=== PATIENT | male | born 1980 | race Caucasian/White ===

== ENCOUNTER 2017-07-20 10:31 | Emergency (ER) | payer OTHER ==
--- NOTE | ~2017-07-20 | CR142 ---
[facility]. [facility] A Service of [facility] RADIOLOGY TEXT RESULTS PATIENT: FRANCISCO J CEJA LOCATION: SED : 80 UNIT #: [id number] AGE: [address]: Dean Banuelos SEX: M ORDER DR: [id number] [address] [id number] MR#: [id number] Acc #: [id number] NAME: FRANCISCO J CEJA : 1980 SEX: M STUDY DATE/TIME: 07/20/2017 11:47 UNIT: SED ROOM: STUDY DESCRIPTION: CR Hand Min 3 Views Rt Attending Physician: Dean Banuelos Ordering Physician: Melany Antonio M.D. Primary Care Physician: Roberto Crowell M.D. MEDICAL IMAGING REPORT This report is preliminary unless electronic signature is present. EXAM Right hand. INDICATIONS Right hand pain since Tuesday after pushing down on a knife. FINDINGS Three views of the right hand were obtained. The healed fracture of the fifth metacarpal bones. The other bones appear normal. There is no acute fracture. IMPRESSION Old healed fracture of the fifth metacarpal bone. Otherwise normal. Dictated by... Ector Zambrano M.D. THIS IS AN ELECTRONICALLY VERIFIED REPORT Ector Zambrano M.D. at 07/21/2017 7:21 AM BORA/mario alberto TD: 07/20/2017 21:14 JOB #: [id number] MEDICAL IMAGING REPORT Page 1 of 1
[~2017-07-20 10:31] MED LIST: TESSALON PERLES PO; ZITHROMAX 250MG PO
== END 2017-07-20 12:55 | disposition home or self-care (01) ==
LOC: SED 10:31
DX: G56.01 Carpal tunnel syndrome, right upper limb (principal); K21.9 Gastro-esophageal reflux disease without esophagitis; F17.200 Nicotine dependence, unspecified, uncomplicated; Z98.890 Other specified postprocedural states
CPT/HCPCS: 29125; 73130; 99283